=== PATIENT | female | born 1955 | race Caucasian/White ===

== ENCOUNTER 2016-12-26 08:10 | Day surgery (SDC) | payer BC ==
[2016-12-26] MEDS ORDERED: PROPOFOL 10 MG/ML VIAL IV ONE (14:00)
[2016-12-26] MEDS ORDERED: LIDOCAINE 2% MDV (20MG/ML) 20ML VIAL IV ONE (14:00)
[2016-12-26] MEDS ORDERED: MIDAZOLAM HCL 2MG/2ML VIAL IV ONE (14:00)
--- NOTE | 2016-12-30 11:46 | Operative Note ---
DATE OF SURGERY: 12/26/2016 REFERRING: Betsy Jackson D.O. PREOPERATIVE DIAGNOSIS: Colorectal cancer screening, average risk. POSTOPERATIVE DIAGNOSES: 1. Sigmoid polyp. 2. Sigmoid diverticulosis. PROCEDURE: COLONOSCOPY with cold snare polypectomy. Surgeon: Jordy Carr D.O. PREPARATION QUALITY: Good to excellent. Estimated Blood Loss: Minimal. SPECIMENS: Sigmoid polyp. PROCEDURE: After informed consent was obtained from the patient, she was placed in left lateral decubitus position in the Endoscopy Suite, sedated and monitored by Department of Anesthesia. Digital rectal examination was unremarkable. A well-lubricated PCF-180 colonoscope was inserted into the rectum and advanced to the cecum. Preparation quality was good to excellent. The cecum was unremarkable as was the ileocecal valve and appendiceal orifice, ascending colon, transverse colon and descending colon. No polyps, mass lesions or inflammation were seen. The sigmoid colon demonstrated scattered small-mouthed diverticula. There was also noted to be a 5 to 6 mm sessile polyp which was removed with cold snare with minimal bleeding noted. The remainder of the sigmoid colon and rectum were unrevealing. Forward and J-turn views of the rectum and anorectum were unremarkable. The endoscope was straightened, the rectal ampulla was deflated and the endoscope was removed. RECOMMENDATIONS: Suggest the patient follow a high-fiber diet. She will require repeat exam in 3 to 5 year pending tissue histology. As always, thank you for allowing me to participate in the care of your patient. Jordy Carr DO CC: Bets[facility] Jackson D.O. [facility]
== END 2016-12-26 10:13 | disposition home or self-care (01) ==
LOC: HOP 08:10
PROVIDERS: ATTEND Internal Medicine Gastroenterology
DX: Z12.11 Encounter for screening for malignant neoplasm of colon (principal); D12.5 Benign neoplasm of sigmoid colon; K57.30 Diverticulosis of large intestine without perforation or abscess without bleeding

== ENCOUNTER 2018-11-07 17:33 | Emergency (ER) | payer BC ==
[2018-11-07] MEDS ORDERED: KETOROLAC 30 MG/ML VIAL IM ONE (18:12)
--- NOTE | 2018-11-07 18:15 | Emergency Department Record ---
History of Present Illness - General Chief complaint: Pain Stated complaint: LT SHOULDER PAIN Time Seen by Provider: 11/07/18 18:03 Source: Patient Mode of Arrival: Ambulatory Limitations: No limitations - History of Present Illness Initial comments: The patient is here due to the acute onset of L shoulder pain 2 hours ago. She was reaching into the wash machine and she felt the acute onset of the pain. The patient denies any snap or pulling sensation but since has not been able to move the L shoulder due to the pain. At times there is radiation of pain to the L elbow. The patient denies any neck pain, numbness, or any trauma. MD Complaint: Extremity pain Onset/Timin -: Hour(s) Location: Left, Shoulder History of Same: No Radiation: Distal Severity scale (1-10): 10 Quality: Aching, Sharp Associated Symptoms: Denies other symptoms - Related Data Home Medications Medication Instructions Recorded Confirmed Last Taken Calcium Carb/D3/Magnesium/Zinc 1 each PO DAILY 11/07/18 11/07/18 1 Day Ago [Reji Mag Zinc + D3 Tablet] ~11/06/18 Colesevelam HCl [Welchol] 31,250 mg PO DAILY 11/07/18 11/07/18 1 Day Ago ~11/06/18 Letrozole [Femara] 2.5 mg PO DAILY 11/07/18 11/07/18 1 Day Ago ~11/06/18 Multivitamin [Multiple Vitamins] 1 each PO DAILY 11/07/18 11/07/18 1 Day Ago ~11/06/18 Trazodone HCl 50 mg PO QHS 11/07/18 11/07/18 1 Day Ago ~11/06/18 Previous Rx's Medication Instructions Recorded Naproxen [Naprosyn] 500 mg PO BID #14 tablet. 11/07/18 Allergies Allergy/AdvReac Type Severity Reaction Status Date / Time codeine Allergy VOMITING Verified 11/07/18 18:05 Travel Screening - Travel/Exposure Within Last 30 Days Have you traveled within the last 30 days?: No - Travel/Exposure Within Last Year Have you traveled outside the [place] in the last year?: No - Additonal Travel Details Have you been exposed to anyone with a communicable illness?: No - Travel Symptoms Symptom Screening: None Review of Systems Constitutional: Denies: Chills, Fever Eyes: Denies: Eye discharge ENT: Denies: Congestion Respiratory: Denies: Cough Past Medical History - SOCIAL HISTORY Smoking Status: Former smoker Alcohol Use: None Drug Use: None - RESPIRATORY Hx Respiratory Disorders: Yes Hx Sleep Apnea: Yes Hx of CPAP: No - CARDIOVASCULAR Hx Cardio Disorders: Yes Comment:: high cholesterol - NEURO Hx Neuro Disorders: No - GI Hx GI Disorders: Yes Hx Diverticulitis: Yes Hx Irritable Bowel: Yes - Hx Genitourinary Disorders: No - ENDOCRINE Hx Endocrine Disorders: No - MUSCULOSKELETAL Hx Musculoskeletal Disorders: Yes Hx Arthritis: Yes (knees) - PSYCH Hx Psych Problems: No - HEMATOLOGY/ONCOLOGY Hx Hematology/Oncology Disorders: Yes Hx Cancer: Yes (breast) Hx Chemotherapy: Yes Hx Radiation Therapy: Yes Family Medical History Any Significant Family History?: Yes Hx Cancer: Father Hx Heart Disease: Father Physical Exam - General General Appearance: Alert, Oriented x3, Cooperative, No acute distress - Head Head exam: Atraumatic, Normocephalic, Normal inspection - Eye Eye exam: Normal appearance, PERRL - Neck Neck exam: Normal inspection - Respiratory Respiratory exam: Normal lung sounds bilaterally. negative: Respiratory distress - Cardiovascular Cardiovascular Exam: Regular rate, Normal rhythm, Normal heart sounds - Extremities Extremities exam: Normal inspection, Tenderness (There is diffuse tenderness to the proximal L humerus.), Other (The L arm is NVI.). negative: Full ROM (There is very decreased flexion and extension due to pain and the patient is not able to abduct the L shoulder. ) Course Vital Signs 11/07/18 17:56 Temperature 98.2 F Pulse Rate [ 57 L Right] Respiratory 18 Rate Blood Pressure 161/91 [Right Arm] Pulse Ox 99 - Reevaluation(s) Reevaluation #1: The patient is back from xray and states the pain is improved. I did discuss the neg xrays with the patient and the need for F/U with her PCP for further evaluation and possibly an MRI of the L shoulder. 11/07/18 18:52 Medical Decision Making - Data Complexity MDM Data: X-Ray Ordered and/or Reviewed (L shoulder: Neg) Disposition Disposition: Discharge Clinical Impression: Shoulder pain, left Qualifiers: Chronicity: acute Qualified Code(s): M25.512 - Pain in left shoulder Disposition: Home, Self-Care Condition: (2) Stable Instructions: Shoulder Sprain (ED) Additional Instructions: Please wear the L arm sling for a week and ice the L shoulder when possible. Take the Naprosyn for pain and please see your family doctor for recheck this week for further evaluation and to possibly have an MRI done of the L shoulder. Return to the ER for any worsening issues. Prescriptions: Naproxen [Naprosyn] 500 mg PO BID #14 tablet.dr Forms: Patient Portal Access Time of Disposition: 18:55 Quality - Quality Measures Quality Measures: N/A - Blood Pressure Screening View Details: Yes Does Patient Have Any of the Following: No Blood Pressure Classification: Hypertensive Reading Systolic Measurement: 139 Diastolic Measurement: 91 Screening for High Blood Pressure: < First Hypertensive BP, F/U Documented > [ G8950] First Hypertensive Follow-up Interventions: Referral to alternative/primary care provider.
--- NOTE | 2018-11-10 12:39 | RADIOLOGY REPORT ---
EXAM: LEFT SHOULDER HISTORY: PAIN. TECHNIQUE: Three views of the left shoulder were obtained. FINDINGS: There is mild DJD at the acromioclavicular joint. The glenohumeral joint is preserved. There are no fractures. IMPRESSION: DJD WITHOUT ACUTE INJURY. [facility]BER: [id number] [facility]
== END 2018-11-07 19:09 | disposition home or self-care (01) ==
LOC: ER 17:33
DX: S43.402A Unspecified sprain of left shoulder joint, initial encounter (principal); X50.0XXA Overexertion from strenuous movement or load, initial encounter; E78.00 Pure hypercholesterolemia, unspecified; Z87.891 Personal history of nicotine dependence
CPT/HCPCS: 99283 ×2; 96372; 73030; J1885

== ENCOUNTER 2019-10-11 18:33 | Emergency (ER) | payer BC ==
[2019-10-11] MEDS ORDERED: ASPIRIN 81 MG CHEWABLE TABLET PO ONE (18:36)
--- NOTE | 2019-10-11 18:46 | Emergency Department Record ---
History of Present Illness - General Chief Complaint: Chest Pain Stated Complaint: CHEST TIGHTNESS Time Seen by Provider: 10/11/19 18:35 Source: Patient Mode of Arrival: Ambulatory Limitations: No limitations - History of Present Illness Initial Comments: 63 yo female presents to ED for evaluation of chest "heaviness" intermittently for the past 1 week. Patient denies pain with exertion, denies fevers, chills, or recent cough symptoms. Patient denies calf pain or swelling, denies history of DVT. Patient denies previous heart or lung problems as well. Patient has been exerting her self at physical therapy for her neck, denies pain during activity. MD Complaint: Chest pain Onset/Timin -: Week(s) Pain Location: Left chest Pain Radiation: RUE Severity: Moderate Quality: Heaviness Consistency: Intermittent Improves With: Nothing Worsens With: Nothing Treatments Prior to Arrival: None - Related Data On Oral Contraceptives: No Allergies Allergy/AdvReac Type Severity Reaction Status Date / Time codeine Allergy VOMITING Verified 10/11/19 18:43 Review of Systems Constitutional: Denies: Chills, Fever, Malaise Eyes: Denies: Eye discharge, Eye pain ENT: Denies: Congestion, Ear pain, Epistaxis Respiratory: Denies: Cough, Dyspnea Cardiovascular: Reports: Chest pain. Denies: Dyspnea on exertion, Edema Endocrine: Denies: Heat or cold intolerance Gastrointestinal: Denies: Abdominal pain, Nausea, Vomiting Genitourinary: Denies: Incontinence, Retention Musculoskeletal: Denies: Arthralgia, Back pain Skin: Denies: Bruising, Change in color Neurological: Denies: Abnormal gait, Confusion, Headache, Tingling, Tremors Psychiatric: Denies: Anxiety Hematological/Lymphatic: Denies: Anemia, Blood Clots Past Medical History - SOCIAL HISTORY Smoking Status: Former smoker Drug Use: None - RESPIRATORY Hx Respiratory Disorders: Yes Hx Sleep Apnea: Yes Hx of CPAP: No - CARDIOVASCULAR Hx Cardio Disorders: Yes Comment:: high cholesterol - NEURO Hx Neuro Disorders: No - GI Hx GI Disorders: Yes Hx Diverticulitis: Yes Hx Irritable Bowel: Yes - Hx Genitourinary Disorders: No - ENDOCRINE Hx Endocrine Disorders: No - MUSCULOSKELETAL Hx Musculoskeletal Disorders: Yes Hx Arthritis: Yes (knees) - PSYCH Hx Psych Problems: No - HEMATOLOGY/ONCOLOGY Hx Hematology/Oncology Disorders: Yes Hx Cancer: Yes (breast) Hx Chemotherapy: Yes Hx Radiation Therapy: Yes Family Medical History Hx Cancer: Father Hx Heart Disease: Father Physical Exam - General General Appearance: Alert, Oriented x3, Cooperative, No acute distress Limitations: No limitations - Head Head exam: Atraumatic, Normocephalic, Normal inspection Head exam detail: negative: Abrasion, Contusion, Martinez's sign, General tenderness, Hematoma, Laceration - Eye Eye exam: Normal appearance. negative: Conjunctival injection, Periorbital swelling, Periorbital tenderness, Scleral icterus - ENT Ear exam: negative: Auricular hematoma, Auricular trauma Nasal Exam: negative: Active bleeding, Discharge, Dried blood, Foreign body Mouth exam: negative: Drooling, Laceration, Muffled voice, Tongue elevation - Neck Neck exam: Normal inspection. negative: Meningismus, Tenderness - Respiratory Respiratory exam: Normal lung sounds bilaterally. negative: Respiratory distress, Rhonchi, Stridor, Wheezes - Cardiovascular Cardiovascular Exam: Regular rate, Normal rhythm, Normal heart sounds - GI/Abdominal GI/Abdominal exam: Soft. negative: Distended, Rebound, Rigid, Tenderness - Rectal Rectal exam: Deferred - exam: Deferred - Extremities Extremities exam: Normal inspection. negative: Pedal edema, Tenderness - Back Back exam: Denies: CVA tenderness (R), CVA tenderness (L) - Neurological Neurological exam: Alert, Normal gait, Oriented X3 - Psychiatric Psychiatric exam: Normal affect, Normal mood - Skin Skin exam: Normal color. negative: Abrasion Type of lesion: negative: abrasion Course - Reevaluation(s) Reevaluation #1: 10/11/19 18:55 EKG: NSR 64 Normal axis, normal intervals No acute ST-T wave changes. Reevaluation #2: 10/11/19 19:28 Laboratory studies were reviewed and appear grossly unremarkable for an acute p rocess. CXR: No acute process The patient was deemed to be low-risk for cardiac disease based on the patients history and evaluation in the ED, HEART Score was applied and found to be 3. As a result, repeat Troponin in 3-hours appears appropriate and if negative for myocardial injury, the patient may be discharged home with appropriate outpatient follow-up for further evaluation. I did review the Heart Score with the patient and her SO, they are in agreement with the plan of care as discussed. Reevaluation #3: 10/11/19 22:06 Repeat Troponin appears negative for myocardial injury. Patient appears stable for discharge with instructions for outpatient follow-up with Dr. Sierra for further cardiac stress testing. Patient is in agreement with the plan of care as discussed and appears stable for discharge at this time. Medical Decision Making - Lab Data Result diagrams: 10/11/19 18:53 10/11/19 18:53 Disposition Disposition: Discharge Clinical Impression: Atypical chest pain Disposition: Home, Self-Care Condition: (2) Stable Instructions: Chest Pain (ED) Additional Instructions: Return to ED if your symptoms worsen or if you have any concerns. Follow-up with Dr. Sierra in 3-5 days as directed for outpatient cardiac stress testing. Referrals: Yudith Sierra M.D. [MEDICAL DOCTOR] - [facility] [Provider Group] Forms: Patient Portal Access Time of Disposition: 22:07 Quality - Quality Measures Quality Measures: N/A - Blood Pressure Screening Does Patient Have Any of the Following: No Blood Pressure Classification: Pre-Hypertensive BP Reading Systolic Measurement: 121 Diastolic Measurement: 68 Screening for High Blood Pressure: < Pre-Hypertensive BP, F/U Documented > [G8950] Pre-Hypertensive Follow-up Interventions: Referral to alternative/primary care provider.
[2019-10-11 19:00] LABS: ABSOLUTE NEUTROPHIL COUNT 4.08; BASO % 0.4 % (0-6); EOS % 2.9 % (0-6); GRAN % 48.9 % (47-80); HEMATOCRIT 42.7 % (35.0-47.0); HEMOGLOBIN 13.3 gm/dl (11.6-16.0); LYMPH % 38.8 % (16-45); MEAN CELL VOLUME 92.8 fl (81-97); MEAN CORPUSCULAR HEMOGLOBIN 28.9 pg (27-33); MEAN CORPUSCULAR HGB CONC 31.1 g/dl (32-36); MEAN PLATELET VOLUME 9.8 fl (7.4-10.4); PLATELET COUNT 242 K/uL (130-400); RED CELL DISTRIBUTION WIDTH 13.2 % (11.5-14.5); WHITE BLOOD COUNT W/O DIFF 8.3 K/uL (4.2-12.2)
[2019-10-11 19:15] LABS: BLOOD UREA NITROGEN 11 mg/dL (8-23); CREATININE 0.9 mg/dL (0.5-0.9); EST GLOMERULAR FILTRATION RATE > 60 mL/min
[2019-10-11 19:16] LABS: TOTAL PROTEIN 7.2 g/dL (6.6-8.7)
[2019-10-11 19:18] LABS: GLUCOSE,RANDOM 120 mg/dL (74-109)
[2019-10-11 19:21] LABS: ALB/GLOB RATIO 1.7 (1.1-1.8); ALBUMIN 4.5 g/dL (4.0-5.0); ALKALINE PHOSPHATASE 70 U/L (35-104); ALT/SGPT 21 U/L (<33); AST/SGOT 22 U/L (10.0-35.0)
--- NOTE | 2019-10-11 19:27 | RADIOLOGY REPORT ---
EXAMINATION: Two View Chest Radiographs EXAM DATE: 10/11/2019 7:17 PM TECHNIQUE: Frontal and lateral views INDICATION: chest pain COMPARISON: Chest x-ray 12/15/2012 ENCOUNTER: Not applicable FINDINGS: The heart, mediastinum, and pulmonary vasculature are normal. No lung consolidation or pleural effu sions are present. Left axillary surgical clips. IMPRESSION: No acute cardiopulmonary disease is present. Dictated by: Kishor Turcios MD on 10/11/2019 7:25 PM. .
== END 2019-10-11 22:16 | disposition home or self-care (01) ==
LOC: ER 18:33
DX: R07.89 Other chest pain (principal); Z87.891 Personal history of nicotine dependence
CPT/HCPCS: 71046; 80053; 84484; 85025; 93005; 93010; 99284